=== PATIENT | female | born 1985 | race Caucasian/White ===

== ENCOUNTER 2017-12-20 05:44 | Emergency (ER) | payer MEDICAID ==
[2017-12-20] MEDS: HYDROCODONE/APAP (5/325) TAB PO (06:43)
[2017-12-20] MEDS: IBUPROFEN 600 MG TAB PO (06:43)
== END 2017-12-20 06:50 | disposition home or self-care (01) ==
LOC: FTE 05:44
DX: K08.89 Other specified disorders of teeth and supporting structures (principal)
CPT/HCPCS: 99284; Z7610

== ENCOUNTER 2018-05-06 07:16 | Emergency (ER) | payer MEDICAID ==
[2018-05-06 08:51] LABS: UR BILIRUBIN (Dip) NEGATIVE (NEGATIVE); UR BLOOD (Dip) NEGATIVE (NEGATIVE); UR CLARITY CLEAR (CLEAR); UR COLOR COLORLESS (YELLOW); UR GLUCOSE (Dip) NEGATIVE (NEGATIVE); UR KETONES (Dip) NEGATIVE (NEGATIVE); UR LEUKOCYTE ESTERASE (Dip) NEGATIVE Leu/ul (NEGATIVE); UR NITRITE (Dip) NEGATIVE (NEGATIVE); UR SPECIFIC GRAVITY (Dip) 1.002 (1.003-1.030); UR TOTAL PROTEIN (Dip) NEGATIVE (NEGATIVE); UR UROBILINOGEN (Dip) NEGATIVE (NEGATIVE)
[2018-05-06 08:52] LABS: ADD UMIC NO; UR ASCORBIC ACID NEGATIVE (NEGATIVE)
== END 2018-05-06 11:54 | disposition home or self-care (01) ==
LOC: FTE 07:16
DX: R10.2 Pelvic and perineal pain (principal)
CPT/HCPCS: 74176; 76775; 76856; 81003; 81025; 99285-25